=== PATIENT | female | born 1970 | race African-American/Black ===

== ENCOUNTER → 2021-01-12 | Outpatient (CLI) | payer BC ==
--- NOTE | 2021-01-14 10:12 | RAD ---
PROCEDURE: MG BILAT SCREEN+ARTIE HISTORY: The patient is 50 years old and is seen for Reason: SCREENING / Spl. Instructions: / Histor y: . COMPARISON: April 23, 2019 TECHNIQUE: CC and MLO views of both breasts were obtained. Images were processed by the [employer] computer-aided detection system. DENSITY: The breast parenchyma is extremely dense, which could obscure a lesion on mammography. FINDINGS: No developing mass, suspicious calcifications or architectural distortion. Right upper o uter intramammary lymph node. IMPRESSION: Negative. No evidence of malignancy. Extremely dense breasts. Recommend annual screening mammograms per [employer] guidelines. She will be due in one year. BI-RADS category 2 Benign Patient entered into a reminder system for annual screening mammogram. Electronically signed by: Julio iLng DO (01/14/2021 10:09 AM) [id number]
== END ==
LOC: MAMMO 13:06
PROVIDERS: ATTEND Family Medicine
DX: Z12.31 Encounter for screening mammogram for malignant neoplasm of breast (principal)
CPT/HCPCS: 77063; 77067

== ENCOUNTER → 2021-06-18 | Outpatient (CLI) | payer SELFPAY ==
--- NOTE | 2021-06-18 09:50 | RAD ---
EXAM: Ward scale and color Doppler renal artery sonogram. HISTORY: Right renal cyst. Dehydration. Renal insufficiency. TECHNIQUE: Ward scale and color Doppler sonographic imaging the kidneys and renal arteries with spect ral waveform analysis was performed. COMPARISON: None. FINDINGS: The kidneys are normal in size. There is no hydronephrosis. There is a tiny simple cyst wit hin the lower pole of the right kidney. Follow-up is not routinely performed for simple cysts. There are normal renal artery peak systolic velocities and renal artery to aorta velocity ratios. The infer ior vena cava and renal veins are patent.. IMPRESSION: 1. Doppler findings consistent with less than 50 percent stenosis involving the renal arteries. 2. Tiny simple appearing cyst within the lower pole the right kidney. Electronically signed by: Mora Perez MD (06/18/2021 9:47 AM) [id number]
== END ==
LOC: US 09:06
PROVIDERS: ATTEND Family Medicine
DX: N28.1 Cyst of kidney, acquired (principal); R79.89 Other specified abnormal findings of blood chemistry; E86.0 Dehydration
CPT/HCPCS: 93975